=== PATIENT | female | born 1985 | race Caucasian/White ===

== ENCOUNTER 2020-03-13 09:43 | Emergency (ER) | payer MEDICAID, SELFPAY ==
[2020-03-13 09:50] VITALS: BP 100/68; PULSE 104; RESP 16; TEMP 36.6; O2SAT 98; BMI 20.3
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
== END 2020-03-13 10:52 | disposition home or self-care (01) ==
PROVIDERS: Emergency Provider Emergency Medicine
DX: S50.11XA Contusion of right forearm, initial encounter (principal); M79.631 Pain in right forearm; Y29.XXXA Contact with blunt object, undetermined intent, initial encounter; Y93.9 Activity, unspecified; Y92.009 Unspecified place in unspecified non-institutional (private) residence as the place of occurrence of the external cause; Y99.9 Unspecified external cause status
CPT/HCPCS: 73090; 99283

== ENCOUNTER → 2020-04-24 13:05 | Outpatient (BNVA) | payer MEDICAID, SELFPAY | PROVIDERS: Visit Provider Advanced Practice Midwife | DX: Z32.00 Encounter for pregnancy test, result unknown (principal); N92.6 Irregular menstruation, unspecified; O21.9 Vomiting of pregnancy, unspecified; F41.9 Anxiety disorder, unspecified | CPT/HCPCS: 81025; 99202 ==

== ENCOUNTER 2020-04-25 14:01 | Emergency (ER) | payer MEDICAID, SELFPAY ==
--- NOTE | 2020-04-25 14:12 | XR_ITS ---
EXAMINATION: XR SHOULDER, LEFT CLINICAL INFORMATION: Left shoulder pain status post injury COMPARISON: February 27, 2019 TECHNIQUE: 2 views of of the left shoulder. FINDINGS: There is no evidence of acute fracture or dislocation of the left shoulder. Glenohumeral joint unremarkable. No calcific tendinitis. Coracoclavicular joint unremarkable. No widening of the coracoid clavicular space is seen. XR/XR shoulder LT min 2V IMPRESSION: No significant left shoulder abnormality identified.
[2020-04-25 14:14] VITALS: BP 135/54; PULSE 67; RESP 18; TEMP 36.3; O2SAT 97; BMI 19.3
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
--- NOTE | 2020-04-25 15:21 | PC.NURSE ---
THU ALONZO WAS BROUGHT INTO ED INTO ROOM 18 [address]. PT WAS VERY ANXIOUS AND EXPRESSED CONCERN FOR BEING AROUND TOO MANY PEOPLE IN ED AND WANTED A PRIVATE ROOM. AT THE TIME THERE WERE NO PRIVATE ROOMS, WHEN ONE BECAME AVAILABLE IN RESULTS PENDING. PT MOVED TO RP AND THEN COMPLAINED THAT THE FLOOR WAS DIRTY AND ASKED IF SHE COULD CLEAN IT HERSELF. THIS RN ASKED PT NOT TO CLEAN THE FLOOR THERE ARE MANY GERMS. THIS RN SPOKE WITH HOUSEKEEPING AND THEY ENTERED ROOM TO SWEEP FLOOR. PT THEN BECAME MORE ANXIOUS DUE TO OTHERS BEING IN THE ROOM AND ASKED IF SHE COULD GO BACK TO ROOM 18[address]ALL I FELT MORE COMFORTABLE OVER THERE. TIOC ALEX SPOKE WITH PATIENT AND EXPLAINED WE COULD NOT KEEP MOVING HER TO A DIFFERENT BED AND TO PLEASE WAIT IN RP FOR DISCHARGE PAPERS. WHEN THIS RN BROUGHT IN DISCHARGE PAPERS PT ASKED ME MY NAME, WHICH I TOLD HER, AND THEN SHE ASKED WHY THE DOCTOR DIDN'T LOOK AT HER NECK AND SHE HAD MORE QUESTIONS. THIS RN DID LET PROVIDER KNOW. PT DID SIGN DISCHARGE PAPERS.
== END 2020-04-25 15:28 | disposition home or self-care (01) ==
PROVIDERS: Emergency Provider Emergency Medicine Emergency Medical Services
DX: O26.91 Pregnancy related conditions, unspecified, first trimester (principal); M25.512 Pain in left shoulder; Z3A.01 Less than 8 weeks gestation of pregnancy
CPT/HCPCS: 73030; 99283; 99284

== ENCOUNTER → 2020-04-29 15:45 | Outpatient (BNVA) | payer MEDICAID, SELFPAY | PROVIDERS: PCP Nurse Practitioner Community Health; Visit Provider Advanced Practice Midwife | DX: Z34.80 Encounter for supervision of other normal pregnancy, unspecified trimester (principal); R42 Dizziness and giddiness | CPT/HCPCS: 99212 ==

== ENCOUNTER → 2020-05-28 14:35 | Outpatient (BNVA) | payer MEDICAID, SELFPAY | PROVIDERS: Visit Provider Advanced Practice Midwife | CPT/HCPCS: 99212 ==

== ENCOUNTER → 2020-05-30 10:29 | Outpatient (BNVA) | payer MEDICAID, SELFPAY | PROVIDERS: Visit Provider Advanced Practice Midwife | DX: Z3A.12 12 weeks gestation of pregnancy (principal) | CPT/HCPCS: 81003; 99212 ==

== ENCOUNTER 2020-05-31 11:10 | Outpatient (REF) | payer MEDICAID, SELFPAY ==
--- NOTE | ~2020-05-31 | US_ITS ---
EXAMINATION: OBSTETRICAL ULTRASOUND, FIRST TRIMESTER HISTORY: 35-year-old at 12 weeks of gestation NT screening COMPARISON: None TECHNIQUE: Real time transabdominal imaging with color and M-mode Doppler. FINDINGS: A single, live IUP CRL of 65.3 mm c/w 13.0wks is noted. Heart Rate: 150 beats per minute. Normal yolk sac seen. NT was 1.4.mm. NB Present The embryo appears sonographically wnl for this GA. Subchorionic hematoma is noted. Patient is asymptomatic. Both maternal ovaries are seen and appear normal. GESTATIONAL AGE: 1. Established GA: 12.5 wks 2. GA from AUA: 13.0 wks ESTIMATED DATE OF DELIVERY: 1. Established CÉSAR: 12/08/2020 2. C[facility]SAR from [facility]: 12/06/2020 US/US OB 1T nuc measure IMPRESSION: Single, live IUP MFM Consultation: I reviewed the ultrasound findings along with significance of NT measurement. The NT of less than 3mm is generally reassuring. However, the sensitivity for T21 detection is only 60%. I reviewed the availability of serum aneuploidy screening which includes cell-free DNA and placental protein based tests. I discussed the sensitivity, false-positive rate, and other limitations associated with each test. I also reviewed the availability of invasive diagnostic tests that are associated small but definite risk of miscarriage. We also reviewed the differences between screening tests and diagnostic tests. After our discussion, she opted for the First trimester screening that is based on cell-free DNA or non-invasive testing (NIPT). The result will be faxed to your office in approximately 7 days. A follow up at 18 weeks for survey has been scheduled. Thank you very much for this referral. Majority of this visit was spent reviewing her care and counselling her in face to face time: Time spent 30 min.
== END 2020-05-31 11:11 | disposition home or self-care (01) ==
LOC: HO.US 11:10
PROVIDERS: Visit Provider Advanced Practice Midwife
DX: Z34.90 Encounter for supervision of normal pregnancy, unspecified, unspecified trimester (principal); Z36.82 Encounter for antenatal screening for nuchal translucency
CPT/HCPCS: 76813

== ENCOUNTER 2020-07-11 15:09 | Outpatient (REF) | payer MEDICAID, SELFPAY ==
[2020-07-11 15:44] LABS: MANUAL DIFF FLAG NO
[2020-07-11 15:53] LABS: Basophils Percent Auto 0.3 % (0-2); Eosinophils Absolute Auto 0.1 X10*3/uL (0.0-0.4); Eosinophils Percent Auto 1.2 % (0-4); Hematocrit 36.4 % (37-47); Hemoglobin 12.1 g/dl (12.0-16.0); Imm Gran Abs Auto 0.14 X10*3/uL (0.00-0.03); Imm Gran Pct Auto 1.2 % (0.0-0.4); Lymphocytes Absolute Auto 2.2 X10*3/uL (1.2-4.9); Lymphocytes Percent Auto 19.4 % (20-40); Mean Corpuscular HGB Conc 33.2 g/dl (31.0-35.0); Mean Corpuscular Volume 93.3 fL (80-98); Mean Platelet Volume 10.6 fL (9.4-12.3); Monocytes Absolute Auto 0.7 X10*3/uL (0.1-1.2); Monocytes Percent Auto 6.4 % (2-11); Neutrophils Absolute Auto 8.1 X10*3/uL (2.0-8.3); Neutrophils Percent Auto 71.5 % (45-73); Platelet Count 169 X10*3/uL (160-400); Red Cell Distribution Width 13.2 % (11.0-16.0); White Blood Count 11.3 X10*3/uL (4.8-10.8)
[2020-07-11 16:46] LABS: Amphetamine Screen Urine Not Detected (Not Detect); Benzodiazepines Screen Urine Not Detected (Not Detect); Cannabinoid Screen Urine POSITIVE (Not Detect); Opiate Screen Urine Not Detected (Not Detect); Phencyclidine Screen Urine Not Detected (Not Detect)
[2020-07-11 16:48] LABS: Barbiturates, Urine Not Detected (Not Detect); Cocaine Screen Urine Not Detected (Not Detect)
[2020-07-12 08:09] LABS: HIV AB/AG Nonreactive (Nonreactive); HIV Num 1 0.04 S/CO (0.00-0.99)
[2020-07-12 08:13] LABS: ~HepC Num1 0.04 S/CO (0.00-0.79); ~Hepatitis C Antibody Nonreactive (Nonreactive)
[2020-07-12 08:15] LABS: HBsAGNum1 0.16 S/CO (0.00-0.99); Hepatitis B Surface Antigen Negative (Negative)
[2020-07-12 09:07] LABS: Syphilis Screen Nonreactive (Nonreactive)
[2020-07-12 17:57] LABS: Rubella IgG Antibody 3.59 Index
== END 2020-07-11 15:10 | disposition home or self-care (01) ==
LOC: HO.LAB 15:09
PROVIDERS: Visit Provider Advanced Practice Midwife
DX: Z34.90 Encounter for supervision of normal pregnancy, unspecified, unspecified trimester (principal)
CPT/HCPCS: 80307; 85025; 86762; 86780; 86787; 86803; 86850; 86900; 86901; 87086; 87340; 87389

== ENCOUNTER 2021-06-25 09:14 | Outpatient (REF) | payer MEDICAID, SELFPAY ==
--- NOTE | ~2021-06-25 | MR_ITS ---
EXAMINATION: MR CERVICAL SPINE WITHOUT CONTRAST CLINICAL INFORMATION: Chronic neck pain. Left arm numbness/tingling and weakness. COMPARISON: None available. TECHNIQUE: MRI of the cervical spine was performed using routine sequences without contrast. FINDINGS: The cervical vertebral bodies maintain normal heights. There is mild anterolisthesis of C3 on C4 and C4 on C5. Mild disc height loss is seen at C5-C6. Edema is seen in the soft tissues adjacent to the right-sided C4-C5 and C5-C6 facets which could represent the sequela of recent strain injury. A rounded focus of T2/STIR hyperintensity seen in the T3 vertebral body, presumably a lipid poor hemangioma. The cervical cord signal appears normal. The imaged portions of the intracranial contents appear normal. The extraspinal soft tissues are unremarkable. SPINAL LEVELS: C2-C3: No posterior disc abnormality. No spinal canal or neural foraminal stenosis. C3-C4: No posterior disc abnormality. No spinal canal or neural foraminal stenosis. C4-C5: Mild disc bulging. No spinal canal or neural foraminal stenosis. C5-C6: Shallow left foraminal protrusion causing minimal encroachment on the neural foramen. No spinal canal stenosis. C6-C7: No posterior disc abnormality. No spinal canal or neural foraminal stenosis. C7-T1: No posterior disc abnormality. No spinal canal or neural foraminal stenosis. MR/MR cervical spine wo con IMPRESSION: No spinal canal or neural foraminal stenosis. Mild disc bulging at C4-C5 and shallow left foraminal protrusion at C5-C6. No spinal canal or neural foraminal stenosis. Soft tissue edema is seen adjacent to the right-sided C4-C5 and C5-C6 facets which is nonspecific but could represent sequela of strain type injury.
== END 2021-06-25 09:15 | disposition home or self-care (01) ==
LOC: HO.MRI 09:14
PROVIDERS: Visit Provider Nurse Practitioner
DX: M54.2 Cervicalgia (principal)
CPT/HCPCS: 72141

== ENCOUNTER → 2022-06-12 15:12 | Outpatient (BNVA) | payer MEDICAID, SELFPAY | PROVIDERS: Visit Provider Student in an Organized Health Care Education/Training Program | DX: M35.7 Hypermobility syndrome (principal); M79.7 Fibromyalgia | CPT/HCPCS: 99202 ==

== ENCOUNTER 2024-02-23 11:04 | Emergency (ER) | payer MEDICAID, SELFPAY ==
[2024-02-23 11:41] VITALS: BP 95/67; PULSE 108; TEMP 36.7; O2SAT 97; BMI 19.7
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
[2024-02-23 12:35] LABS: IDNOW Serial# 58CA691E; Strep A Nucleic Acid Negative (Negative)
[2024-02-23 13:06] LABS: Influenza A PCR NEGATIVE (Negative); Influenza B PCR NEGATIVE (Negative); Resp Syncy Virus RNA Qual PCR NEGATIVE (Negative); SARS COV2 PCR INHOUSE NEGATIVE (Negative)
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
[2024-02-23 14:40] VITALS: BP 126/85; PULSE 115; RESP 18; TEMP 36.7; O2SAT 97
--- NOTE | 2024-02-23 19:59 | PC.NURSE ---
PT presented to ER with her four kids, two of them under 5 years old,pt decided to refuse IV due to not being able to watch her children and stop them from running around and touching things, PT has tried to reach out to contacts to get help to babysit the children, pt was unsuccessful in getting help, pt states she is a single mom of four and the children father left them because she has post depression and no help , children while getting IV fluids because of her children being present, pt kids were running up and down [address] despite the door being closed and patient privacy provided, mom said she's trying to keep them calm and she was unable to do so, mom continuously told the kids to shut up and stop screaming .Mom kept hysterically crying and said she was overwhelmed Safety screen assessment done patient has no thoughts of hurting/killing herself at this time she's just overwhelmed and needs a break, Resource booklet provided to patient.
--- NOTE | 2024-02-23 20:00 | PC.NURSE ---
PT BP WNL, pt stated that BP was high for her and that she needed to speak to the doctor, this nurse explained to the pt that BP was WNL and that her baseline runs a little lower, pt was still concerned and said that her BP WNL was extremely high for her and it was concerning , Provider notified, Provider spoke to the patient and she verbalized understanding of it. pt talked about treatment that could be offered with provider, pt refused because she had no one to watch her kids and she couldn't handle them running around and touching everything.
== END 2024-02-23 15:30 | disposition home or self-care (01) ==
PROVIDERS: Emergency Provider Emergency Medicine; PCP Nurse Practitioner
DX: J02.0 Streptococcal pharyngitis (principal); Z79.899 Other long term (current) drug therapy; Z03.818 Encounter for observation for suspected exposure to other biological agents ruled out
CPT/HCPCS: 0241U; 87651; 99283; 99284

== ENCOUNTER 2024-03-10 12:23 | Emergency (ER) | payer MEDICAID, SELFPAY ==
--- NOTE | ~2024-03-10 | XR_ITS ---
EXAMINATION: XR CHEST CLINICAL INFORMATION: SOB COMPARISON: None available. TECHNIQUE: 2 views of the chest were obtained. FINDINGS: No significant abnormality is noted involving the heart, lungs, mediastinum, bony thorax or soft tissues. XR/XR chest 2V IMPRESSION: Unremarkable examination. Electronically signed by: Garret Murray MD 03/10/2024 03:08 PM [facility] [place]
[2024-03-10 13:05] VITALS: BP 112/67; PULSE 94; RESP 16; TEMP 37; O2SAT 98; BMI 20.2
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
[2024-03-10 14:56] LABS: MANUAL DIFF FLAG NO
[2024-03-10 15:01] LABS: Basophils Absolute Auto 0.1 X10*3/uL (0.0-0.2); Basophils Percent Auto 0.4 % (0-2); Hematocrit 40.2 % (37.0-47.0); Hemoglobin 13.2 g/dl (12.0-16.0); Imm Gran Abs Auto 0.17 X10*3/uL (0.00-0.03); Imm Gran Pct Auto 1.2 % (0.0-0.4); Lymphocytes Absolute Auto 1.8 X10*3/uL (1.2-4.9); Lymphocytes Percent Auto 13.1 % (20-40); Mean Corpuscular HGB Conc 32.8 g/dl (31.0-35.0); Mean Corpuscular Hemoglobin 29.7 pg (27.0-33.0); Mean Corpuscular Volume 90.5 fL (80.0-98.0); Mean Platelet Volume 9.5 fL (9.4-12.3); Monocytes Absolute Auto 0.4 X10*3/uL (0.1-1.2); Neutrophils Absolute Auto 11.4 x10*3/uL (2.0-8.3); Neutrophils Percent Auto 82.3 % (45-73); Platelet Count 259 X10*3/uL (160-400); Red Blood Count 4.44 X10*6/uL (4.20-5.50); Red Cell Distribution Width 13.1 % (11.0-16.0); White Blood Count 13.9 X10*3/uL (4.8-10.8)
[2024-03-10 15:06] LABS: INTERNATIONAL NORM RATIO 0.9 (0.9-1.1); Prothrombin Time 10.1 SEC (10.9-12.4)
[2024-03-10 15:11] LABS: Alanine Aminotransferase 18 U/L (0-31); Albumin Level 4.5 g/dL (3.5-5.0); Alkaline Phosphatase 64 U/L (39-117); Anion Gap 12 (12-20); Aspartate Amino Transferase 19 U/L (5-31); Bilirubin Direct < 0.2 mg/dL (0.0-0.5); Bilirubin Total 0.2 mg/dL (0.0-1.0); Blood Urea Nitrogen 9 mg/dL (9-16); Calcium 9.2 mg/dL (8.4-10.2); Carbon Dioxide 28 mmol/L (22-29); Chloride 105 mmol/L (96-108); Creatinine Clr Calc Pharmacy 91.5; Estimated Glomerular Filt Rate > 60; Glucose Random 119 mg/dL (60-115); Potassium 3.6 mmol/L (3.3-5.1); Sodium 141 mmol/L (135-145); Total Protein 6.9 g/dL (6.5-8.0)
[2024-03-10 15:26] LABS: HCG Quantitative < 2 mIU/mL; Troponin-I High Sensitivity < 2.7 ng/L (<3.5-17.0)
[2024-03-10 15:37] LABS: Influenza A PCR NEGATIVE (Negative); Influenza B PCR NEGATIVE (Negative); Resp Syncy Virus RNA Qual PCR NEGATIVE (Negative); SARS COV2 PCR INHOUSE NEGATIVE (Negative)
[2024-03-10 17:20] VITALS: BP 133/82; PULSE 89; RESP 16; O2SAT 100
--- OUTSIDE RECORDS SUMMARY | 2024-03-10 17:39 | XMS_ITS | Continuity of Care Document ---
Author Organization [facility] Address [address] [place] [address]- Care Team Providers Care Mesmerist Name Role Phone Logan Bryson MD Primary Care Physician Encounter [facility] Date(s): 03/26/22 - 04/25/22 [facility] [address], [place] [address] Allergies, Adverse Reactions, Alerts Substance Reaction Severity Status amoxicillin itching Active Immunizations Given and Recorded Vaccine Date Status Refusal Reason tetanus/diphtheria/pertussis, acel(Tdap) 1 04/27/16 Given Fluzone (oldterm) 2 03/23/12 Given 1Early/Late Reason: Med Not Available 2Admin Note: VIS GIVEN Medications ferrous gluconate 325 mg oral tablet 1 tablet = 325 mg, By Mouth, Daily, # 100 tablet, 0 Refills, Maintenance, 04/27/16 17:41:47, Tablet Start Date: 04/27/16 Status: Ordered ibuprofen 600 mg oral tablet 600 mg, By Mouth, Every 6 hours, PRN, # 24 tablet, Refills 0, Tot. Refills 0, Maintenance, Pain , Moderate, 04/27/16 14:54:50, Print Requisition Start Date: 04/27/16 Status: Ordered Lexapro 10 mg oral tablet 1 tablet = 10 mg, By Mouth, Daily, 0 Refills, Maintenance, 08/01/16 14:10:57 Start Date: 08/01/16 Status: Ordered Multivitamin Daily, 0 Refills, Maintenance, 08/01/16 14:11:11 Start Date: 08/01/16 Status: Ordered ondansetron 4 mg oral tablet 1 tablet = 4 mg, By Mouth, Every 8 hours, PRN as needed for nausea/vomiting, # 12 tablet, 0 Refills, Maintenance, 04/27/16 14:11:34, Tablet Start Date: 04/27/16 Status: Ordered oxyCODONE 5 mg oral tablet 10 mg, By Mouth, Every 6 hours, PRN, # 6 tablet, Refills 0, Tot. 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 Patient Care team information Care Team Personnel Name: Logan Bryson MD Position: [facility] Outreach Member Role: PCP Address: Address: [address] [place] [address]- Care Team Related Persons Name: EDUAR FLORES Address: home [address] [place] [address] Name: NALLELY GALINDO Address: home [address] [place] [address] Name: AL ALEJO Name: NALLELY ISAACS Address: home [address] [place] [address] Name: ORALIA LAZARO Address: home [address] [place] [address]
--- OUTSIDE RECORDS SUMMARY | 2024-03-10 17:39 | XMS_ITS | Continuity of Care Document ---
Author Organization [facility] Address [address] [place] [address]- Care Team Providers Care Practice Management Consultant Name Role Phone Adelaide BUCHANAN, Logan Primary Care Physician [phone] [place] [facility] [place]s): 07/01/22 - 07/31/22 [facility] [address] [place] [address] Attending Physician: Chrystal Gottlieb Admitting Physician: Chrystal Gottlieb Referring Physician: AdmtrChrystal Allergies, Adverse Reactions, Alerts Substance Reaction Severity Status amoxicillin itching Active Immunizations Given and Recorded Vaccine Date Status Refusal Reason tetanus/diphtheria/pertussis, acel(Tdap) 1 04/27/16 Given Fluzone (oldterm) 2 03/23/12 Given 1Early/Late Reason: Med Not Available 2Admin Note: VIS GIVEN Medications clonazePAM 0.5 mg oral tablet 1 tablet = 0.5 mg, By Mouth, 3 times a day, 0 Refills, Maintenance, 07/01/22 10:47:00 EDT, Partial fill upon patient request if the prescription is for a schedule II opioid drug. Start Date: 07/01/22 Status: Ordered ferrous gluconate 325 mg oral tablet 1 [...] 08/01/16 14:10:57 Start Date: 08/01/16 Status: Ordered midodrine 5 mg oral tablet 10 mg, 2, tablet, By Mouth, 3 times a day, Refills 0, Maintenance, 07/01/22 10:46:00 EDT, Partial fill upon patient request if the prescription is for a schedule II opioid drug. Start Date: 07/01/22 Status: Ordered Multivitamin Daily, 0 Refills, Maintenance, [...] Ordered VITAMINS Daily, 0, 0, 01/11/08 9:15:55, 1.02564d+006, Constant Indicator, VITAMINS Start Date: 01/11/08 Status: [...] Team Personnel Name: Logan Bryson MD Position: [facility] Outreach Member Role: PCP Address: Address: [address] [place] [address]- Care Team Related Persons Name: EDUAR FLORES Address: home [address] [place] [address] Name: NALLELY GALINDO Address: home [address] [place] [address] Name: AL ALEJO Address: home [address] [place] [address] Name: NALLELY ISAACS Address: home [address] [place] [address] Name: ROALIA LAZARO Address: home [address] [place] [address]
--- OUTSIDE RECORDS SUMMARY | 2024-03-10 17:39 | XMS_ITS | Continuity of Care Document ---
Author Organization [facility] Address [address] [place] [address]- Care Team Providers Care Automation Test Engineer Name Role Phone Adelaide BUCHANAN, Logan Primary Care Physician Encounter [facility] [place] Date(s): 10/20/23 - 12/10/[address] [address]- Attending Physician: Nayely Rao MD Admitting Physician: Nayely Rao MD Referring Physician: Tabitha Deras NP Allergies, Adverse Reactions, Alerts Substance Reaction Severity [...] Ordered VITAMINS Daily, 0, 0, 01/11/08 9:15:55, 1.23501y+006, Constant Indicator, VITAMINS Start Date: 01/11/08 Status: [...] Team Personnel Name: Logan Bryson MD Position: [facility] Outreach Member Role: PCP Address: Address: [address] [place] [address]- [place] Care Team Related Persons Name: EDUAR FLORES Address: home [address] [place] [address] Name: NALLELY GALINDO Address: home [address] [place] [address] Name: AL ALEJO Address: home [address] [place] [address] Name: NALLELY ISAACS Address: home [address] [place] [address] Name: ORALIA LAZARO Address: home [address] [place] [address]
--- OUTSIDE RECORDS SUMMARY | 2024-03-10 17:39 | XMS_ITS | Continuity of Care Document ---
Author Organization [facility] Address [address] [place] [address]- Care Team Providers Care Box Lining Machine Feeder Name Role Phone Adelaide BUCHANAN, Logan Primary Care Physician [phone] Encounter [facility] Date(s): 07/01/22 - 07/31/22 [facility] [address] [place] [address]- Attending Physician: Chrystal Gottlieb Admitting Physician: Chrystal Gottlieb Referring Physician: Chrystal Gottlieb Referring Physician: Tabitha Guevara CNM Allergies, Adverse Reactions, Alerts Substance Reaction Severity [...] Ordered VITAMINS Daily, 0, 0, 01/11/08 9:15:55, 1.66427w+006, Constant Indicator, VITAMINS Start Date: 01/11/08 Status: [...] S Outreach Member Role: PCP Address: Address: [address] [place] [address]- Care Team Related Persons Name: EDUAR FLORES Address: home [address] [place] [address] Name: NALLELY GALINDO Address: home [address] [place] [address] Name: AL ALEJO Address: home [address] [place] [address] Name: NALLELY ISAACS Address: home [address] [place] [address] Name: ORALIA LAZARO Address: home [address] [place] [address]
--- OUTSIDE RECORDS SUMMARY | 2024-03-10 17:39 | XMS_ITS | Continuity of Care Document ---
Author Organization [facility] Address [address] [place] [address]- Care Team Providers Care Engineering Intern Name Role Phone Adelaide BUCHANAN, Logan Primary Care Physician Encounter [facility] [place] Date(s): 10/11/23 - 11/10/[address] [address]- Allergies, Adverse Reactions, Alerts Substance Reaction Severity [...] Ordered VITAMINS Daily, 0, 0, 01/11/08 9:15:55, 1.73711z+006, Constant Indicator, VITAMINS Start Date: 01/11/08 Status: [...] Team Personnel Name: Logan Bryson MD Position: [facility] Outreach Member Role: PCP Address: Address: [address] [place] [address]- Care Team Related Persons Name: EDUAR FLORES Address: home [address] [place] [address] Name: NALLELY GALINDO Address: home [address] [place] [address] Name: AL ALEJO Address: [address] [place] [address] Name: NALLELY ISAACS Address: home [address] [place] [address] Name: ORALIA LAZARO Address: home [address] [place] [address]
--- OUTSIDE RECORDS SUMMARY | 2024-03-10 17:39 | XMS_ITS | Continuity of Care Document ---
Author Organization [facility] Address [address] [place] [address]- Care Team Providers Care Contact Printer Dry Film Name Role Phone Adelaide BUCHANAN, Logan Primary Care Physician [place] [id number] Date(s): 05/26/22 - 06/25/22 [facility] [address] [place] [id number] Attending Physician: Chrystal Gottlieb Admitting Physician: AdmChrystal lieberman Referring Physician: AdmtrChrystal Allergies, Adverse Reactions, Alerts [...] Ordered VITAMINS Daily, 0, 0, 01/11/08 9:15:55, 1.33141y+006, Constant Indicator, VITAMINS Start Date: 01/11/08 Status: [...] Team Personnel Name: Logan Bryson MD Position: [facility] Outreach Member Role: PCP Address: Address: [address] [place] [address]- Care Team Related Persons Name: EDUAR FLORES Address: home [address] [place] [address] Name: NALLELY GALINDO Address: home [address] [place] [address] Name: AL ALEJO Name: NALLELY ISAACS Address: home [address] [place] [address] Name: ORALIA LAZARO Address: home [address] [place] [address]
--- OUTSIDE RECORDS SUMMARY | 2024-03-10 17:39 | XMS_ITS | Continuity of Care Document ---
Author Organization [facility] Address [address] [place] [address]- Care Team Providers Care Reliability Technologist Name Role Phone Adelaide BUCHANAN, Logan Primary Care Physician [place] [facility] [place]/22 - 04/06/22 [facility] [address] [place] [address] Attending Physician: Not on Staff, Attending MD Allergies, Adverse Reactions, Alerts Substance Reaction Severity [...] Ordered VITAMINS Daily, 0, 0, 01/11/08 9:15:55, 1.19790t+006, Constant Indicator, VITAMINS Start Date: 01/11/08 Status: [...] of mental status after the 30 minutes. Note * Event Display: PDC Nuchal Transluscency * Event Display: PDC Nuchal Transluscency Authored Date: [id number] OBSTETRICS REPORT PATIENT INFO: CMRN: [id number] BMRN: [id number] : [birth year] (36 yrs)(F) Name: TAMIR ESTRADAKOLOSKY Visit Date: 03/30/2022 10:23 am PERFORMED BY: Performed By: Cindy Barber RDMS Attending: Gurdeep Menezes MD Referred By: Poornima RANDHAWA Location: [facility] INDICATIONS: AMA multigravida O09.52_ genetic screening ( NIPT ) Z36.0 EVALUATION: Num Of Fetuses: 1 Gest. Sac: Seen in the intrauterine cavity Yolk Sac: Visualized Pole: Visualized Heart Rate(bpm): 158 Cardiac Activity: Present Amniotic Fluid CONCHITA FV: Within normal limits Comment: Active movements seen. BIOMETRY: CRL: 36.4 mm G.Age: 10w 4d CÉSAR: 10/22/22 NT: 0.8 mm OB HISTORY: : 5 Term: 4 GESTATIONAL AGE: LMP: 11w 2d Date: 01/10/22 CÉSAR: 10/17/22 Best: 11w 2d Det. By: LMP (01/10/22) CÉSAR: 10/17/22 CERVIX UTERUS ADNEXA: Cervix Appears closed Adnexa No anomalies noted COMMENTS: There is a live first trimester intrauterine gestation measuring appropriate for gestational age. Patient opted to do NIPT genetic testing. The results will be sent directly to your office. Gurdeep Menezes MD Electronically Signed Final Report 03/30/2022 10:43 am * Event Display: PDC Nuchal Transluscency Authored Date: [id number] Please click on pdf link to open report Patient Care team information Care Team Personnel Name: Logan Bryson MD Position: [facility] Outreach Member Role: PCP Address: Address: [address] [place] [address]- Care Team Related Persons Name: EDUAR FLORES Address: home [address] [place] [address] Name: NALLELY GALINDO Address: home [address] [place] [address] Name: AL ALEJO Name: NALLELY ISAACS Address: home [address] [place] [address] Name: ORALIA LAZARO Address: home [address] [place] [address]
--- OUTSIDE RECORDS SUMMARY | 2024-03-10 17:39 | XMS_ITS | Continuity of Care Document ---
Author Organization [facility] Address [address] [place] [address]- Care Team Providers Care Window Treatment Installer Name Role Phone Adelaide BUCHANAN, Logan Primary Care Physician [phone] Encounter [facility] [place] Date(s): 08/20/22 - 09/19/22 [facility] [address] [place] [address] Allergies, Adverse Reactions, Alerts Substance Reaction Severity [...] Ordered VITAMINS Daily, 0, 0, 01/11/08 9:15:55, 1.00999p+006, Constant Indicator, VITAMINS Start Date: 01/11/08 Status: [...] Team Personnel Name: Logan Bryson MD Position: [facility] Outreach Member Role: PCP Address: Address: [address] [place] [address]- Care Team Related Persons Name: EDUAR FLORES Address: home [address] [place] [address] Name: NALLELY GALINDO Address: home [address] [place] [address] Name: AL ALEJO Address: home [address] [place] [address] Name: NALLELY ISAACS Address: home [address] [place] [address] Name: ORALIA LAZARO Address: [address] [place] [address]
--- OUTSIDE RECORDS SUMMARY | 2024-03-10 17:39 | XMS_ITS | Continuity of Care Document ---
Author Organization [facility] Address [address] [place] [address]- Care Team Providers Care Shipping And Receiving Specialist Name Role Phone Adelaide BUCHANAN, Logan Primary Care Physician [phone] [place] [facility] 09/16/22 - 10/16/22 [facility] [address] [place] [id number] Allergies, Adverse Reactions, Alerts Substance Reaction Severity [...] Ordered VITAMINS Daily, 0, 0, 01/11/08 9:15:55, 1.61942c+006, Constant Indicator, VITAMINS Start Date: 01/11/08 Status: [...] team information Care Team Personnel Name: Logan Bryosn MD Position: [facility] Outreach Member Role: PCP Address: Address: [address] [place] [address]- Care Team Related Persons Name: EDUAR FLORES Address: home [address] [place] [address] Name: NALLELY GALINDO Address: [address] [place] [address] Name: AL ALEJO Address: [address] [place] [address] Name: NALLELY ISAACS Address: home [address] [place] [address] Name: ORALIA LAZARO Address: [address] [place] [address]
--- OUTSIDE RECORDS SUMMARY | 2024-03-10 17:40 | XMS_ITS | Continuity of Care Document ---
Author Organization [facility] Address [address] [place] [address]- Care Team Providers Care Delivery Table Feeder Name Role Phone Adelaide BUCHANAN, Logan Primary Care Physician [place] [facility] [place]/21/22 - 09/20/22 Maternal Medicine [address] [place] [address] Allergies, Adverse Reactions, Alerts Substance Reaction [...] Ordered VITAMINS Daily, 0, 0, 01/11/08 9:15:55, 1.30675c+006, Constant Indicator, VITAMINS Start Date: 01/11/08 Status: [...] Team Personnel Name: Logan Bryson MD Position: [facility] Outreach Member Role: PCP Address: Address: [address] [place] [address]- Care Team Related Persons Name: EDUAR FLORES Address: home [address] [place] [address] Name: NALLELY GALINDO Address: home [address] [place] [address] Name: AL ALEJO Address: home [address] [place] [address] Name: NALLELY ISAACS Address: [address] [place] [address] Name: ORALIA LAZARO Address: [address] [place] [address]
--- OUTSIDE RECORDS SUMMARY | 2024-03-10 17:40 | XMS_ITS | Continuity of Care Document ---
Author Organization [facility] Address [address] [place] [address]- Care Team Providers Care Nurses' Association Executive Director Name Role Phone Logan Bryson MD Primary Care Physician [phone] Encounter [facility] [place] R [id number] Date(s): 04/06/22 - 04/13/22 [facility] [address] [place] [address]- Attending Physician: Eugenio Ferraro Referring Physician: Logan Bryson MD Allergies, Adverse Reactions, Alerts Substance Reaction [...] Ordered VITAMINS Daily, 0, 0, 01/11/08 9:15:55, 1.30243o+006, Constant Indicator, VITAMINS Start Date: 01/11/08 Status: [...] of mental status after the 30 minutes. Vital Signs Most recent to oldest [Reference Range]: 1 Height 167.64 cm (04/06/22 11:18 AM) Oxygen Saturation [94-100 %] 97 % (04/06/22 11:18 AM) Pulse Rate [55-90 bpm] 100 bpm *H* (04/06/22 11:18 AM) Blood Pressure [90-138/55-84 mm Hg] 95/6 8mm Hg (04/06/22 11:18 AM) Respiratory Rate [16-30 br/min] 16 br/mi n (04/06/22 11:18 AM) Temperature [96.8-100.4 DegF] 97.9 DegF (04/06/22 11:18 AM) Mode of Delivery (Oxygen) Room air (04/06/22 11:18 AM) Blood pressure sites Arm, left (04/06/22 11:18 AM) Temperature Route Femoral (04/06/22 11:18 AM) Patient Care team information Care Team Personnel Name: Logan Bryson MD Position: [facility] Outreach Member Role: PCP Address: Address: [address] [place] [address]- Care Team Related Persons Name: EDUAR FLORES Address: home [address] [place] [address] Name: NALLELY GALINDO Address: [address] [place] [address] Name: AL ALEJO Name: NALLELY ISAACS Address: home [address] [place] [address] Name: ORALIA LAZARO Address: [address] [place] [address]
--- OUTSIDE RECORDS SUMMARY | 2024-03-10 17:40 | XMS_ITS | Continuity of Care Document ---
Author Organization [facility] ter Address [address] [place] [address]- Care Team Providers Care Ship/Rec/Doc Control Name Role Phone Adelaide BUCHANAN, Logan Primary Care Physician Encounter [facility] [place] Date(s): 09/12/22 - 10/18/[address] [address] Attending Physician: Brooklynn Schaeffer CNM Admitting Physician: Brooklynn Schaeffer CNM Referring Physician: Brooklynn Schaeffer CNM Allergies, Adverse Reactions, Alerts Substance Reaction [...] Ordered VITAMINS Daily, 0, 0, 01/11/08 9:15:55, 1.15241p+006, Constant Indicator, VITAMINS Start Date: 01/11/08 Status: [...] S Outreach Member Role: PCP Address: Address: [address] [place] [address]- Care Team Related Persons Name: EDUAR FLORES Address: home [address] [place] [address] Name: NALLELY GALINDO Address: [address] [place] [address] Name: AL ALEJO Address: [address] [place] [address] Name: NALLELY ISAACS Address: home [address] [place] [address] Name: ORALIA LAZARO Address: [address] [place] [address]
--- OUTSIDE RECORDS SUMMARY | 2024-03-10 17:40 | XMS_ITS | Continuity of Care Document ---
Author Organization [facility] ter Address [address] [place] [address]- Care Team Providers Care Mesh Man Name Role Phone Logan Bryson MD Primary Care Physician [place] [facility] [place](s): 10/21/23 - 12/21/[address] [address]- Encounter Diagnosis Encounter for care and examination of lactating mother(Final) - Discharge Disposition: A-D/C Home Attending Physician: Nishi Ag CNM Admitting Physician: Nishi Ag CNM Referring Physician: Nishi Ag CNM Allergies, Adverse Reactions, Alerts Substance Reaction [...] Ordered VITAMINS Daily, 0, 0, 01/11/08 9:15:55, 1.63737h+006, Constant Indicator, VITAMINS Start Date: 01/11/08 Status: [...] Outreach Member Role: PCP Address: Address: [address] [place] [address]- Care Team Related Persons Name: EDUAR FLORES Address: home [address] [place] [address] Name: NALLELY GALINDO Address: home [address] [place] [address] Name: AL ALEJO Address: [address] [place] [address] Name: NALLELY ISAACS Address: [address] [place] [address] Name: ORALIA LAZARO Address: [address] [place] [address]
--- OUTSIDE RECORDS SUMMARY | 2024-03-10 17:40 | XMS_ITS | Continuity of Care Document ---
Author Organization [facility] Address [address] [place] [address]- Care Team Providers Care Psychologist Research Assistant Name Role Phone Logan Bryson MD Primary Care Physician Encounter [facility] [facility] Date(s): 05/26/22 - 06/02/22 [facility] [address] [place] [id number] Attending Physician: Not on Staff, Attending MD [...] Ordered VITAMINS Daily, 0, 0, 01/11/08 9:15:55, 1.02868i+006, Constant Indicator, VITAMINS Start Date: 01/11/08 Status: [...] the 30 minutes. Note * Event Display: [facility] Detailed Anatomy Survey, Lvl 2 * Event Display: [facility] Detailed Anatomy Survey, Lvl 2 Authored Date: [id number] OBSTETRICS REPORT PATIENT INFO: CMRN: [id number] BMRN: [id number] : [birth year] (37 yrs)(F) Name: TAMIR ISAACS Visit Date: 05/26/2022 10:54 am PERFORMED BY: Performed By: Ernestina Allen RDMS Attending: Allyn Encarnacion MD Referred By: Poornima RANDHAWA Location: [facility] INDICATIONS: AMA multigravida O09.52_ Other placental or cord disorders O43.89_ EVALUATION: Num Of Fetuses: 1 Heart Rate(bpm): 154 Cardiac Activity: Present Presentation: Cephalic Placenta: Anterior P. Cord Insertion: Normal Amniotic Fluid CONCHITA FV: Within normal limits Comment: Active movements seen. BIOMETRY: BPD: 43.4 mm G.Age: 19w 1d HC: 156.1 mm G.Age: 18w 4d AC: 138.8 mm G.Age: 19w 2d FL: 26.2 mm G.Age: 18w 0d HUM: 27 mm G.Age: 18w 4d CER: 18.7 mm G.Age: 18w 2d NFT: 4.1 mm LV: 5.1 mm CM: 4.1 mm CI: 77.46 % 70 - 86 FL/HC: 16.8 % 16.1 - 18.3 HC/AC: 1.12 1.09 - 1.39 FL/BPD: 60.4 % FL/AC: 18.9 % 20 - 24 Est. FW: 251 gm 0 lb 9 oz OB HISTORY: : 5 Term: 4 GESTATIONAL AGE: LMP: 19w 3d Date: 01/10/22 CÉSAR: 10/17/22 U/S Today: 18w 5d CÉSAR: 10/22/22 Best: 19w 3d Det. By: LMP (01/10/22) CÉSAR: 10/17/22 TARGETED ANATOMY: Central Nervous System Calvarium/Cranial V.: No anomalies seen Intracranial Jennifer: No anomalies seen Cavum: No anomalies seen Lateral Ventricles: No anomalies seen Choroid Plexus: No anomalies seen Cereb./Vermis: No anomalies seen Cisterna Magna: No anomalies seen Midline Falx: No anomalies seen Spine Cervical: Normal but LIMITED Thoracic: Normal but LIMITED Lumbar: Normal but LIMITED Sacral: Normal but LIMITED Head/Neck Face: No anomalies seen Lips: Intact upper lip Neck: No anomalies seen Nuchal Fold: No anomalies seen Palate: No anomalies seen Profile: No anomalies seen Orbits/Eyes: Both lenses seen Thorax Lungs: No anomalies seen 4 Chamber View: Normal but LIMITED Cardiac Rhythm: No anomalies seen Rt Outflow Tract: No anomalies seen Lt Outflow Tract: No anomalies seen Aortic Arch: No anomalies seen Ductal Arch: Normal but LIMITED SVC: Normal but LIMITED Cardiac [place]: No anomalies seen Diaphragm: No anomalies seen 3 Vessel View: Normal but LIMITED IVC: Normal but LIMITED Abdomen Ventral Wall: No anomalies seen Cord Insertion: No anomalies seen (into placenta) Situs: No anomalies seen Stomach: No anomalies seen Liver: No anomalies seen Lt Kidney: Normal but LIMITED Rt Kidney: Normal but LIMITED Bladder: No anomalies seen Bowel: SEE COMMENTS Extremities Lt Humerus: No anomalies seen Rt Humerus: No anomalies seen Lt Forearm: No anomalies seen Rt Forearm: No anomalies seen Lt Hand: No anomalies seen Rt Hand: No anomalies seen Lt Femur: No anomalies seen Rt Femur: No anomalies seen Lt Lower Leg: No anomalies seen Rt Lower Leg: No anomalies seen Lt Foot: No anomalies seen Rt Foot: No anomalies seen Other Umbilical Cord: 3-vessel CERVIX UTERUS ADNEXA: Cervix Length: 3.9 cm. Appears closed Adnexa No anomalies noted Comment The patient declined vaginal scanning for cervical length screening. COMMENTS: The patient is AMA with low risk NIPT Exam limited by position. In some areas the bowel appears bright but on today's scan doesn't appear to meet criteria for echogenic bowel. Overall biometry at 11th percentile. The placenta is anterior. It appears thickened (6cm) with heterogeneous appearance and multiple placental lakes of varying sizes. The PCI inserts over this area with multiple lakes. On color Doppler there are some areas of vascularity and flow within this heterogeneous region. Because this exam was performed offsite I was unable to director of group counseling program the patient. Per [facility] chart review the patient has had prior x3. Differential includes placental hematoma/abruption, chorangioma, placenta accreta spectrum (less likely given location of the lakes and lack of prior uterine surgery). RECOMMENDATIONS: Recommend follow up at [facility] in 1-2 weeks for discussion w/ MFM and for repeat placental imaging and follow up anatomy. Allyn Encarnacion MD Electronically Signed Final Report 05/26/2022 02:30 pm * Event Display: [facility] Detailed Anatomy Survey, Lvl 2 Authored Date: Please click on pdf link to open report Patient Care team information Care Team Personnel Name: Logan Bryson MD Position: [facility] Outreach Member Role: PCP Address: Address: [address] [place] [address]- Care Team Related Persons Name: EDUAR FLORES Address: home [address] [place] [address] Name: NALLELY GALINDO Address: [address] [place] [address] Name: AL ALEJO Name: NALLELY ISAACS Address: home [address] [place] [address] Name: ORALIA LAZARO Address: [address] [place] [address]
--- OUTSIDE RECORDS SUMMARY | 2024-03-10 17:40 | XMS_ITS | Continuity of Care Document ---
Author Organization [facility] Address [address] [place] [address]- Care Team Providers Care Pilot Plant Research Technician Name Role Phone Logan Bryson MD Primary Care Physician [phone] Encounter [facility] ACCT R [id number] Date(s): 04/06/22 - 05/06/22 [facility] [address] [place], [place] [address] Attending Physician: Chrystal Gottlieb Admitting Physician: Chrystal [...] Ordered VITAMINS Daily, 0, 0, 01/11/08 9:15:55, 1.25143q+006, Constant Indicator, VITAMINS Start Date: 01/11/08 Status: [...] Team Personnel Name: Logan Bryson MD Position: [facility] Outreach Member Role: PCP Address: Address: [address] [place] [address]- Care Team Related Persons Name: EDUAR FLORES Address: [address] [place] [address] Name: NALLELY GALINDO Address: [address] [place] [address] Name: AL ALEJO Name: NALLELY ISAACS Address: [address] [place] [address] Name: ORALIA LAZARO Address: [address] [place] [address]
--- OUTSIDE RECORDS SUMMARY | 2024-03-10 17:40 | XMS_ITS | Continuity of Care Document ---
Author Organization [facility] Address [address] [place] [address]- Care Team Providers Care Plant Physiology Teacher Name Role Phone Adelaide BUCHANAN, Logan Primary Care Physician Encounter [facility] [place] Date(s): 11/10/23 - 12/10/[address] [address]- Attending Physician: Chrystal Gottlieb Admitting Physician: Chrystal [...] Ordered VITAMINS Daily, 0, 0, 01/11/08 9:15:55, 1.91277r+006, Constant Indicator, VITAMINS Start Date: 01/11/08 Status: [...] Outreach Member Role: PCP Address: Address: [address] [place] [address]- [place] Care Team Related Persons Name: EDUAR FLORES Address: home [address] [place] [address] Name: NALLELY GALINDO Address: [address] [place] [address] Name: AL ALEJO Address: [address] [place] [address] Name: NALLELY ISAACS Address: [address] [place] [address] Name: ORALIA ALZARO Address: [address] [place] [address]
--- OUTSIDE RECORDS SUMMARY | 2024-03-10 17:40 | XMS_ITS | Continuity of Care Document ---
Author Organization [facility] Address [address] [place] [address]- Care Team Providers Care Singing Teacher Name Role Phone Adelaide BUCHANAN, Logan Primary Care Physician Encounter [facility] Date(s): 10/11/23 - 11/18/[address] [address]- Attending Physician: Nayely Rao MD Admitting Physician: [...] Ordered VITAMINS Daily, 0, 0, 01/11/08 9:15:55, 1.00546o+006, Constant Indicator, VITAMINS Start Date: 01/11/08 Status: [...] Outreach Member Role: PCP Address: Address: [address] [place] [address]- [place] Care Team Related Persons Name: EDUAR FLORES Address: home [address] [place] [address] Name: NALLELY GALINDO Address: [address] [place] [address] Name: AL ALEJO Address: [address] [place] [address] Name: NALLELY ISAACS Address: [address] [place] [address] Name: ORALIA LAZARO Address: [address] [place] [address]
--- OUTSIDE RECORDS SUMMARY | 2024-03-10 17:40 | XMS_ITS | Continuity of Care Document ---
Author Organization [facility] Address [address] [place] [address]- Care Team Providers Care Environmental Remediation Consultant Name Role Phone Adelaide BUCHANAN, Logan Primary Care Physician [phone] Encounter [facility] [place] Date(s): 06/20/22 - 07/20/22 [facility] [address] [place] [id number] Allergies, Adverse Reactions, Alerts Substance [...] Ordered VITAMINS Daily, 0, 0, 01/11/08 9:15:55, 1.53629j+006, Constant Indicator, VITAMINS Start Date: 01/11/08 Status: [...] Team Personnel Name: Logan Bryson MD Position: [facility] Outreach Member Role: PCP Address: Address: [address] [place] [address]- Care Team Related Persons Name: EDUAR FLORES Address: home [address] [place] [address] Name: NALLELY GALINDO Address: [address] [place] [address] Name: AL ALEJO Address: [address] [place] [address] Name: NALLELY ISAACS Address: [address] [place] [address] Name: ORALIA LAZARO Address: home [address] [place] [address]
[2024-03-10] MEDS: guaiFENesin LA 600 MG TAB.ER.12H 1200 MG PO (20:14)
[2024-03-10] MEDS: Meclizine HCl 25 MG TABLET PO (20:14)
[2024-03-10 20:16] VITALS: BP 133/82; PULSE 89; RESP 16; TEMP 37; O2SAT 100
== END 2024-03-10 20:18 | disposition home or self-care (01) ==
PROVIDERS: Physician Assistant Medical; Emergency Provider Emergency Medicine; PCP Nurse Practitioner
DX: J06.9 Acute upper respiratory infection, unspecified (principal); R06.02 Shortness of breath; R42 Dizziness and giddiness; Z03.818 Encounter for observation for suspected exposure to other biological agents ruled out; Z79.899 Other long term (current) drug therapy
CPT/HCPCS: 0241U; 36415; 71046; 80048; 80076; 83735; 84484; 84702; 85025; 85610; 99283; 99284